=== PATIENT | male | born 1965 | race Caucasian/White ===

== ENCOUNTER 2023-06-06 07:13 | Day surgery (SDC) | payer OTHER ==
[2023-05-29 13:35] LABS: BASOPHILS # (AUTO) 0.1 X10'3 (0-0.2); BASOPHILS % (AUTO) 0.9 % (0-1); EOSINOPHILS # (AUTO) 0.7 X10'3 (0-0.9); EOSINOPHILS % (AUTO) 7.3 % (0-6); LYMPHOCYTES # (AUTO) 1.9 X10'3 (1.1-4.8); LYMPHOCYTES % (AUTO) 19.8 % (21-51); MEAN CORPUSCULAR HGB CONC 33.6 g/dL (33.0-36.5); MEAN CORPUSCULAR VOLUME 92.1 FL (78-98); MEAN PLATELET VOLUME 7.7 FL (7.4-10.4); MONOCYTES # (AUTO) 0.7 X10'3 (0-0.9); MONOCYTES % (AUTO) 7.2 % (2-12); NEUTROPHILS # (AUTO) 6.2 X10'3 (1.8-7.7); NEUTROPHILS % (AUTO) 64.8 % (42-75); PRE OP HEMATOCRIT 42.2 % (42.0-52.0); PRE OP HEMOGLOBIN 14.2 g/dL (14.0-17.9); PRE OP PLATELET COUNT 228 X10'3 (140-440); PRE OP WHITE BLOOD COUNT 9.6 10'3 (4.8-10.8); RED BLOOD COUNT 4.58 X10'6 (4.70-6.10); RED CELL DISTRIBUTION WIDTH 13.8 % (11.5-14.5)
[2023-05-29 13:35] LABS: BILIRUBIN,URINE NEGATIVE (Neg); CLARITY,URINE CLEAR (Clear); COLOR,URINE YELLOW (Yellow); GLUCOSE, URINE 250 mg/dl (Neg); KETONES,URINE NEGATIVE (Neg); LEUKOCYTE ESTERASE ,URINE NEGATIVE (Neg); NITRITES, URINE NEGATIVE (Neg); OCCULT BLOOD,URINE NEGATIVE (Neg); PROTEIN,URINE NEGATIVE (Neg); UROBILINOGEN,URINE 0.2 E.U/dL (0.2-1.0)
[2023-05-29 13:40] LABS: UA COLLECTION TYPE CLN CATCH MIDSTREAM
[2023-05-29 13:46] LABS: ALBUMIN 3.7 G/DL (3.4-5.0); ALKALINE PHOSPHATASE 107 IU/L (46-116); BLOOD UREA NITROGEN 20 MG/DL (7-18); BUN/CREATININE RATIO 16.7 (10.0-20.0); CALCIUM 9.4 MG/DL (8.5-10.1); CHLORIDE 103 MMOL/L (99-107); PRE OP ALT 31 U/L (30-65); PRE OP ANION GAP 8 (8-16); PRE OP AST 18 U/L (10-37); PRE OP BILIRUB, TOTAL 0.6 MG/DL (0.0-1.0); PRE OP GLUCOSE 155 MG/DL (70-104); PRE OP POTASSIUM 4.5 MMOL/L (3.4-5.1); PRE OP SODIUM 138 MMOL/L (135-145); TOTAL CARBON DIOXIDE 27.5 MMOL/L (24-32); TOTAL PROTEIN 7.4 G/DL (6.4-8.2); eGFR 62 ML/MIN
[2023-06-06] VITALS (8 sets, daily range): BP systolic 121–146; BP diastolic 70–92; PULSE 77–95; RESP 11–16; TEMP 97.9; O2SAT 89–99
[~2023-06-06] VITALS: Ht 177.8 cm; Wt 102.8 kg
[~2023-06-06 07:13] MED LIST: ASPI-1397 PO; ATOR-2 PO; CLOP75TA34 PO; DOCUMENT DATE & TIME OF BETA-BLOCKER PO ONE; GLIP5TAB26 PO; LISI5TAB22 PO; METO25TA6 PO; cefazolin 2gm/D5W 100mL 100 ML IV ONE; famotidine 20mg tablet PO ONE; ringers solution, lacted 1,000 ML IV SCH
[2023-06-06] MEDS ORDERED: bacitracin 15gm ointment TP ONE (10:02)
[2023-06-06] MEDS ORDERED: BUPIVAcaine/PF 2.5 mg/ml (0.25%) 30ml vial ONE (10:02)
[2023-06-06] MEDS ORDERED: meperidine/PF 25mg/ml syringe IV PRN ×3 (10:05)
[2023-06-06] MEDS ORDERED: ringers solution, lacted 1,000 ML IV SCH (10:05)
[2023-06-06] MEDS ORDERED: proCHLORperazine 10 MG/2 ml inj IV PRN (10:05)
[2023-06-06] MEDS ORDERED: ondansetron/PF 4mg/2ml inj IV PRN (10:05)
[2023-06-06] MEDS ORDERED: morphine 4 MG/ML inj SYRINge IV PRN (10:05)
[2023-06-06] MEDS ORDERED: morphine 2 MG/ML inj. syringe IV PRN (10:05)
[2023-06-06] MEDS ORDERED: cloNIDine hcl/PF 100mcg/ml inj ONE (10:17)
[2023-06-06] MEDS ORDERED: midazolam 1 mg/ML 2ml injection ONE (10:20)
[2023-06-06] MEDS ORDERED: fentaNYL/PF 50MCG/1 ML 2ML syringe ONE ×2 (10:20→11:50)
[2023-06-06] MEDS ORDERED: BUPIVAcaine 0.25% w/Epi /PF 30ml vial IJ ONE (11:05)
[2023-06-06] MEDS ORDERED: rocuronium 10mg/ml inj IV ONE (11:39)
[2023-06-06] MEDS ORDERED: LIDOcaine 1%/PF 5ML 10 MG/ML VIAL ONE (11:39)
[2023-06-06] MEDS ORDERED: propofol inj 20 ML IV ONE (11:39)
[2023-06-06] MEDS ORDERED: ROPIVAcaine 0.5% (5mg/ml) 30ml vial ONE (11:39)
[2023-06-06] MEDS ORDERED: ondansetron/PF 4mg/2ml inj ONE (11:39)
[2023-06-06] MEDS ORDERED: acetaminophen 1,000mg/100ml IV 100 ML IV ONE (11:39)
[2023-06-06] MEDS ORDERED: dexamethasone sod phosphate 4mg/ml inj. ONE (11:39)
[2023-06-06] MEDS ORDERED: neostigmine methylsulfate 1 MG/ML 10ml vial ONE (12:32)
[2023-06-06] MEDS ORDERED: glycopyrrolate 0.2mg/ml inj ONE (12:32)
--- NOTE | 2023-06-06 12:53 | NUR ---
Received from OR via , accompanied by Anesthesiologist ACACIA and report given by Anesthesiolgist. PT IS ROUSABLE, SL RESTLESS. SAO2 92% W/ O2 10LPM PER MASK. MONITOR SR, 20 G IV INTACT TO R HAND INFUSING TKO. ENCOURAGED TO DEEP BREATHE. CAST/LEVI WRAP INTACT TO LLE. TOES WARM. DENIES PAIN OR NAUSEA; WILL CONTINUE TO MONITOR.
--- NOTE | 2023-06-06 12:53 | NUR ---
Received from OR via , accompanied by Anesthesiologist DEYSI and report given by Anesthesiolgist. PT IS ROUSABLE - ENCOURAGED TO DEEP BREATHE; VSS. MONITOR SR, O2 10 LPM PER MASK, SAO2 97%. 20 G IV INTACT TO R HAND INFUSING TKO, LLE IN CAST/LEVI WRAP. TOES WARM. DENIES PAIN OR NAUSEA - WILL CONTINUE TO MONITOR. Addendum: 06/06/23 at 1325 by Chrissie Swan RN Amended: Links added.
--- NOTE | 2023-06-06 13:53 | NUR ---
PT ALERT AND RESPONSIVE. SAO2 94% ON RA. ENCOURAGED TO DEEP BREATHE. MONITOR SR, VSS. DENIES PAIN. ABLE TO SL MOVE TOES OF L FOOT; TOES ARE WARM TO TOUCH. CAST/LEVI WRAP INTACT TO LLE. DISCHARGED TO SPOUSE VIA WITHOUT INCIDENT. Addendum: 06/06/23 at 1409 by Chrissie Swan RN Amended: Links added.
== END 2023-06-06 13:53 | disposition home or self-care (01) ==
LOC: PAS 07:13
PROVIDERS: ATTEND Podiatrist Foot & Ankle Surgery
DX: S92.352K Displaced fracture of fifth metatarsal bone, left foot, subsequent encounter for fracture with nonunion (principal); M21.6X2 Other acquired deformities of left foot; I10 Essential (primary) hypertension; I25.2 Old myocardial infarction; E11.9 Type 2 diabetes mellitus without complications; M19.90 Unspecified osteoarthritis, unspecified site; G89.18 Other acute postprocedural pain; Z98.890 Other specified postprocedural states; Z72.89 Other problems related to lifestyle; Z87.891 Personal history of nicotine dependence; Z79.84 Long term (current) use of oral hypoglycemic drugs; Z79.01 Long term (current) use of anticoagulants; Z79.899 Other long term (current) drug therapy; Z79.82 Long term (current) use of aspirin; Z95.5 Presence of coronary angioplasty implant and graft; X58.XXXD Exposure to other specified factors, subsequent encounter
CPT/HCPCS: 28300; 28322; 36415; 64445; 64447; 73620; 80053; 81003; 82948; 85025; A6223; C1713; J0131; J0690; J0735; J1100; J2250; J2405; J2704; J2710; J2795; J3010; J3490; J7030; J7120; S0020; Z7506; Z7508; Z7512; 76000; A4215; A4618; A6253; A6449; A7000